=== PATIENT | male | born 1990 | race Caucasian/White ===

== ENCOUNTER 2020-08-03 12:47 | Emergency (ER) | payer MEDICAID ==
--- NOTE | 2020-08-03 13:09 | ER Document Report ---
ED Medical Screen (RME) - General Chief Complaint: Medical Complaint Stated Complaint: REFERRED - POSSIBLE PNEUMONIA Time Seen by Provider: 08/03/20 13:03 Mode of Arrival: Wheelchair Information source: Patient Notes: 29-year-old presented ED per Referral for a hole in his [place] and left lower lobe pneumonia. He states he had a swallow test and they told him he needed to come to the emergency room and be examined and treated. We will get blood urine and chest x-ray and he will be seen by one of the providers. Patient states he is not short of breath and has no fever. He states he was seen for a cyst in his throat which they removed surgically and they had occurring all the way down to his chest in order to get the infection out. Then he had a swallow test afterwards which showed a pneumonia and a hole in his larynx. I have greeted and performed a rapid initial assessment of this patient. A comprehensive ED assessment and evaluation of the patient, analysis of test results and completion of medical decision making process will be conducted by an additional ED providers. TRAVEL OUTSIDE OF THE [place] IN LAST 30 DAYS: No - Related Data Allergies/Adverse Reactions: No Known Allergies Allergy (Verified 03/20/14 17:01) Past Medical History Endocrine Medical History: Reports: Hx Diabetes Mellitus Type 1 - Immunizations Hx Diphtheria, Pertussis, Tetanus Vaccination: No Physical Exam - Vital signs Vitals: Temp Pulse Resp BP Pulse Ox 98.2 F 110 H 16 121/76 98 08/03/20 12:56 08/03/20 12:56 08/03/20 12:56 08/03/20 12:56 08/03/20 12:56 Course - Vital Signs Vital signs: Temp Pulse Resp BP Pulse Ox 98.2 F 110 H 16 121/76 98 08/03/20 12:56 08/03/20 12:56 08/03/20 12:56 08/03/20 12:56 08/03/20 12:56
[2020-08-03 13:52] LABS: ABSOLUTE BASOPHILS # (AUTO) 0.2 10^3/uL (0.0-0.2); ABSOLUTE EOSINOPHILS # (AUTO) 0.2 10^3/uL (0.0-0.6); ABSOLUTE LYMPHOCYTES (AUTO) 1.4 10^3/uL (0.5-4.7); ABSOLUTE MONOCYTES (AUTO) 0.8 10^3/uL (0.1-1.4); ABSOLUTE NEUT (AUTO) 7.1 10^3/uL (1.7-8.2); BASOPHILS % (AUTO) 1.8 % (0-2); EOSINOPHILS % (AUTO) 2.3 % (0-6); HEMATOCRIT 26.9 % (37.9-51.0); HEMOGLOBIN 9.2 g/dL (13.5-17.0); LYMPHOCYTES % (AUTO) 14.2 % (13-45); MEAN CORPUSCULAR HEMOGLOBIN 30.4 pg (27.0-33.4); MEAN CORPUSCULAR HGB CONC 34.1 g/dL (32.0-36.0); MEAN CORPUSCULAR VOLUME 89 fl (80-97); MONOCYTES % (AUTO) 8.6 % (3-13); PLATELET COUNT 396 10^3/uL (150-450); RED BLOOD COUNT 3.01 10^6/uL (4.35-5.55); RED CELL DISTRIBUTION WIDTH 13.7 % (11.5-14.0); SEGMENTED NEUTROPHILS % (AUTO) 73.1 % (42-78); TOTAL CELLS COUNTED % (AUTO) 100 %; WHITE BLOOD COUNT 9.7 10^3/uL (4.0-10.5)
[2020-08-03 13:58] LABS: APPEARANCE,URINE CLEAR; BILIRUBIN,URINE NEGATIVE (NEGATIVE); CALCIUM OXALATE CRYSTALS,URINE FEW /HPF; COLOR,URINE STRAW; GLUCOSE, URINE >=500 mg/dL (NEGATIVE); KETONES,URINE NEGATIVE (NEGATIVE); LEUKOCYTE ESTERASE,URINE NEGATIVE (NEGATIVE); NITRITE,URINE NEGATIVE (NEGATIVE); PROTEIN,URINE NEGATIVE (NEGATIVE); URINE SPECIFIC GRAVITY 1.027; UROBILINOGEN,URINE NEGATIVE mg/dL (<2.0)
[2020-08-03 14:08] LABS: ALBUMIN 2.7 g/dL (3.5-5.0); ALKALINE PHOSPHATASE 119 U/L (38-126); ANION GAP 9 (5-19); ASPARTATE AMINO TRANSFERASE 26 U/L (17-59); BILIRUBIN,DIRECT 0.2 mg/dL (0.0-0.4); BILIRUBIN,TOTAL 0.3 mg/dL (0.2-1.3); BLOOD UREA NITROGEN 7 mg/dL (7-20); CALCIUM 8.3 mg/dL (8.4-10.2); CARBON DIOXIDE 28 mmol/L (22-30); CHLORIDE 99 mmol/L (98-107); GLUCOSE 303 mg/dL (75-110); POTASSIUM 3.8 mmol/L (3.6-5.0); TOTAL PROTEIN 5.9 g/dL (6.3-8.2)
--- NOTE | 2020-08-03 14:18 | RADIOLOGY REPORT (SQ) ---
EXAM DESCRIPTION: CHEST 2 VIEWS IMAGES COMPLETED DATE/TIME: 08/03/2020 1:55 pm REASON FOR STUDY: pneumonia COMPARISON: 04/20/2016 EXAM PARAMETERS: NUMBER OF VIEWS: two views TECHNIQUE: Digital Frontal and Lateral radiographic views of the chest acquired. RADIATION DOSE: NA LIMITATIONS: none FINDINGS: LUNGS AND PLEURA: There is minimal bibasilar atelectasis. Trace fluid in the right and le ft lateral costophrenic sulci. Lungs are otherwise well inflated and clear. No pneumothorax. No pulmonary nodules. MEDIASTINUM AND HILAR STRUCTURES: No masses or contour abnormalities. HEART AND VASCULAR STRUCTURES: Since the prior films in 2015, patient has undergone sternotomy. No c ardiomegaly. BONES: No acute findings. HARDWARE: None in the chest. OTHER: No other significant finding. IMPRESSION: Since the prior studies in 2014, patient has undergone midline sternotomy. No cardiomeg bianca. Minimal bibasilar atelectasis, trace pleural fluid. TECHNICAL DOCUMENTATION: JOB ID: [id number] 2010 [employer]- All Rights Reserved Reading location - IP/workstation name: [email or web address]
--- NOTE | 2020-08-03 15:36 | ER Document Report ---
ED General - General Chief Complaint: Medical Complaint Stated Complaint: DR GARCIA - POSSIBLE PNEUMONIA Time Seen by Provider: 08/03/20 13:03 Primary Care Provider: ERYN VALLEJO JR, MD [Primary Care Provider] - Follow up as needed Mode of Arrival: Wheelchair Notes: Patient is a 29-year-old white male with history of type 1 diabetes who presents today status post barium swallow with a reported aspiration pneumonia who was sent here for further evaluation and management. Patient and mother report that he was given her report yesterday from the imaging center and advised that he come for evaluation of an aspirated pneumonia. The patient states about a week ago he was admitted for what he believes was an esophageal cyst removal had a sternotomy approach and subsequently postoperative infection of the chest, wound was left open and patient subsequently signed out AMA after becoming aggravated after about a week of postoperative care in the hospital. Patient states he is taking triple antibiotic coverage outpatient as prescribed. He has followed up for his barium study him and has a follow-up with his surgeon in the near future. States he feels fine. Has no complaints. No chest pain or shortness of breath. No fevers chills or night sweats. No nausea or vomiting. Denies any foul odor from the wound or any purulence. No worsening swelling or any redness. TRAVEL OUTSIDE OF THE [place] IN LAST 30 DAYS: No - Related Data Allergies/Adverse Reactions: No Known Allergies Allergy (Verified 08/03/20 13:26) Past Medical History - General Information source: Patient - Social History Smoking Status: Unknown if Ever Smoked Family History: Hypertension, Malignancy. denies: DM Endocrine Medical History: Reports: Hx Diabetes Mellitus Type 1 - Immunizations Hx Diphtheria, Pertussis, Tetanus Vaccination: No Hx Pneumococcal Vaccination: 03/22/14 Review of Systems - Review of Systems Constitutional: denies: Fever EENT: denies: Nose pain Cardiovascular: denies: Dizziness Respiratory: denies: Sputum Gastrointestinal: denies: Poor appetite Genitourinary: denies: Incontinence Male Genitourinary: denies: Testicular pain Musculoskeletal: denies: Muscle pain Skin: See HPI Hematologic/Lymphatic: denies: Easy bleeding Neurological/Psychological: denies: Weakness Physical Exam - Vital signs Vitals: Temp Pulse Resp BP Pulse Ox 98.2 F 110 H 16 121/76 98 08/03/20 12:56 08/03/20 12:56 08/03/20 12:56 08/03/20 12:56 08/03/20 12:56 - General General appearance: Appears well, Alert In distress: None - HEENT Head: Normocephalic, Atraumatic Eyes: Normal Pupils: PERRL Pharynx: Normal Neck: Normal, Supple - Respiratory Respiratory status: No respiratory distress Chest status: Nontender Breath sounds: Normal Chest palpation: Normal - Cardiovascular Rhythm: Regular Heart sounds: Normal auscultation Notes: Status post sternotomy anterior chest wall with superficial incision left open to secondary intention. No purulence noted. No erythema or tenderness. Some scant serosanguineous fluid is noted draining from the lower laparotomy wound. Distal neck incision with sutures intact. - Abdominal Inspection: Normal Distension: No distension Bowel sounds: Normal Tenderness: Nontender Organomegaly: No organomegaly - Extremities General lower extremity: No: Kyler's sign - Neurological Neuro grossly intact: Yes Cognition: Normal Orientation: AAOx4 - Psychological Associated symptoms: Normal affect, Normal mood - Skin Skin Temperature: Warm Skin Moisture: Dry Skin Color: Other - Incision as described above Course - Re-evaluation Re-evalutation: 08/03/20 15:34 Patient with a sternotomy and subsequent postoperative mediastinitis whose wound was left open related to the postoperative infection. I had Dr. Cortez evaluate the patient at bedside as well. We both agree the wound looks well not infected. The previously described erythema surrounding the chest wall has dissipated. There is no purulent drainage or foul odor. I called and spoke with the thoracic surgery service at [facility] at and spoke with Celine from the thoracic surgery service. We discussed the mutual sesar ent I advised her of his condition and we discussed their postoperative plan. She advised that he is already on the triple antibiotic coverage he requires no further care at this time and agreed with changing dressing wound care and scheduled outpatient follow-up. Discussed this with the patient and his mother who agreed with plan of care. We discussed wound care measures. Advised they return here or any ER immediately with any new, persistent or worsening symptoms. They verbalized understood and agreed. - Vital Signs Vital signs: Temp Pulse Resp BP Pulse Ox 98.2 F 110 H 16 121/76 98 08/03/20 12:56 08/03/20 12:56 08/03/20 12:56 08/03/20 12:56 08/03/20 12:56 - Laboratory Result Diagrams: 08/03/20 13:24 08/03/20 13:24 Laboratory results interpreted by me: 08/03/20 08/03/20 08/03/20 13:24 13:24 13:34 RBC 3.01 L Hgb 9.2 L Hct 26.9 L Sodium 136.0 L Creatinine 0.46 L Glucose 303 H Calcium 8.3 L Total Protein 5.9 L Albumin 2.7 L Urine Glucose (UA) >=500 H Discharge - Discharge Clinical Impression: Encounter for postoperative wound care Aspiration pneumonia Qualifiers: Aspiration pneumonia type: unspecified Laterality: unspecified laterality Lung location: lower lobe of lung Qualified Code(s): J69.0 - Pneumonitis due to inhalation of food and vomit Condition: Stable Disposition: HOME, SELF-CARE Instructions: Pneumonia ([facility]) Additional Instructions: Please follow-up with your thoracic surgeon at [facility] as scheduled and discussed. Please return here or any ER immediately with any new, persistent or worsening symptoms. Referrals: ERYN VALLEJO JR, MD [Primary Care Provider] - Follow up as needed
[2020-08-03 16:45] VITALS: BP 134/85
== END 2020-08-03 16:30 | disposition home or self-care (01) ==
LOC: ER 12:47
DX: J69.0 Pneumonitis due to inhalation of food and vomit (principal); E10.9 Type 1 diabetes mellitus without complications; Z98.890 Other specified postprocedural states
CPT/HCPCS: 36415; 71046; 80053; 81001; 85025; 87040; 87086; 99284